=== PATIENT | female | born 2005 | race African-American/Black ===

== ENCOUNTER 2024-11-01 06:29 | Outpatient (REF) | payer OTHER, SELFPAY | END 2024-11-01 06:30 | disposition home or self-care (01) | LOC: HO.UMASIMG 06:29 | PROVIDERS: Visit Provider Family Medicine | DX: Z13.89 Encounter for screening for other disorder (principal) ==

== ENCOUNTER 2024-11-06 07:02 | Outpatient (REF) | payer OTHER, SELFPAY | END 2024-11-06 07:03 | disposition home or self-care (01) | LOC: HO.UMASIMG 07:02 | PROVIDERS: Visit Provider Family Medicine | DX: Z13.89 Encounter for screening for other disorder (principal) ==